=== PATIENT | male | born 1960 | race Two or more races ===

== ENCOUNTER 2022-02-09 12:08 | Emergency (ER) | payer MEDICAID ==
[~2022-02-09] VITALS: Ht 188 cm; Wt 74.8 kg
[2022-02-09 12:20] VITALS: BP 145/105
--- NOTE | 2022-02-09 13:12 | NUR ---
Patient discharged to home in stable condition. Written and verbal after care instructions given. Patient verbalizes understanding of instruction.
== END 2022-02-09 13:12 | disposition home or self-care (01) ==
LOC: ER 12:17
DX: F11.20 Opioid dependence, uncomplicated (principal)
CPT/HCPCS: 99281; A6253; A6403